=== PATIENT | male | born 1970 | race Caucasian/White ===

== ENCOUNTER 2017-08-15 10:15 | Outpatient (CLI) | payer OTHER ==
[~2017-08-15] VITALS: Ht 172.7 cm; Wt 137.9 kg
[2017-08-15 10:24] VITALS: BP 148/88
[2017-08-15] MEDS ORDERED: DULO30CA3 PO (10:33)
[2017-08-15] MEDS ORDERED: ACET-789 PO (10:33)
[2017-08-15] MEDS ORDERED: LISI10TA2 PO (10:33)
[2017-08-15] MEDS ORDERED: GABA-488 PO (10:33)
[2017-08-15] MEDS ORDERED: DICL/MIS50 PO (10:33)
[2017-08-15 11:13] LABS: BASOPHILS # (AUTO) 0.1 10^3/uL (0.0-0.1); BASOPHILS % (AUTO) 1 % (0-10); EOSINOPHILS # (AUTO) 0.1 10^3/uL (0.0-0.3); EOSINOPHILS % (AUTO) 2 % (0-10); LYMPHOCYTES # (AUTO) 1.5 X 10^3 (1.0-4.0); LYMPHOCYTES % (AUTO) 25 % (12-44); MEAN CORPUSCULAR HEMOGLOBIN 28 PG (25-34); MEAN CORPUSCULAR HGB CONC 34 G/DL (32-36); MEAN CORPUSCULAR VOLUME 81 FL (80-99); MEAN PLATELET VOLUME 12.3 FL (7.4-10.4); MONOCYTES # (AUTO) 0.3 X 10^3 (0.0-1.0); MONOCYTES % (AUTO) 5 % (0-12); NEUTROPHILS % (AUTO) 67 % (42-75); PLATELET COUNT 192 10^3/uL (130-400); RED BLOOD COUNT 5.24 10^6/uL (4.35-5.85); RED CELL DISTRIBUTION WIDTH 13.3 % (10.0-14.5)
== END 2017-08-15 10:45 | disposition home or self-care (01) ==
LOC: PREOP 10:15
PROVIDERS: ATTEND Orthopaedic Surgery Orthopaedic Surgery of the Spine
DX: Z01.812 Encounter for preprocedural laboratory examination (principal); M48.06 Spinal stenosis, lumbar region
CPT/HCPCS: 36415; 85025; 87081

== ENCOUNTER 2017-08-29 06:13 | Inpatient (IN) | payer OTHER ==
[~2017-08-29] VITALS: Ht 172.7 cm; Wt 137.9 kg
[~2017-08-29 06:13] MED LIST: ACET-789 PO; DICL/MIS50 PO; DULO30CA3 PO; GABA-488 PO; LISI10TA2 PO
[2017-08-29] MEDS ORDERED: NS (IVPB) 50 ML ONE (06:21)
[2017-08-29] MEDS ORDERED: ceFAZolin 1,000 MG (ANCEF) VIAL ONE (06:21)
[2017-08-29] MEDS ORDERED: ceFAZolin 2 GM/50 ML NS 50 ML ONE (06:22)
[2017-08-29] MEDS ORDERED: proPOfol 200 MG/20 ML (DIPRIVAN) VIAL IV ONE (06:26)
[2017-08-29] MEDS ORDERED: LIDOCAINE PF 2% 5 ML (XYLOCAINE) VIAL ONE (06:26)
[2017-08-29] MEDS ORDERED: fentaNYL INJECTION 250 MCG/5 ML AMP ONE (06:26)
[2017-08-29] MEDS ORDERED: SEVOFLURANE (ULTANE) 15 ML INHAL SOLN ONE ×6 (06:26→08:35)
[2017-08-29] MEDS: LACTATED RINGERS 1,000 ML IV PRN ×3 (06:30→09:45)
[2017-08-29] MEDS ORDERED: MIDAZOLAM 2 MG/2 ML (VERSED) VIAL IV ONE (06:45)
[2017-08-29] MEDS ORDERED: GENTAMICIN 40 MG/ML 2 ML INJ SDV ONE (06:48)
[2017-08-29] MEDS ORDERED: VANCOMYCIN 1000 MG/VIAL ONE (06:48)
[2017-08-29 06:50] VITALS: BP 141/53
[2017-08-29] MEDS ORDERED: ONDANSETRON 4 MG/2 ML (SDV) Z0FRAN IV PRN (07:00)
[2017-08-29] MEDS ORDERED: MILK OF MAGNESIA 400 MG/5 ML 30 ML UDC PO PRN (07:00)
[2017-08-29] MEDS ORDERED: BISACODYL 5 MG (DULCOLAX) TABLET PO PRN (07:00)
[2017-08-29] MEDS ORDERED: ACETAMINOPHEN 325 MG TABLET/CAPLET (TYLENOL) PO PRN (07:00)
[2017-08-29] MEDS ORDERED: PROMETHAZINE 25 MG (PHENERGAN) TAB PO PRN (07:00)
[2017-08-29] MEDS ORDERED: BACLOFEN 10 MG (LIORESAL) TAB PO PRN (07:00)
[2017-08-29] MEDS ORDERED: morphine INJ 10 MG/ML 1ML (SYR OR VIAL) IVP PRN (07:00)
[2017-08-29] MEDS ORDERED: diphenhydrAMINE 25 MG TAB (BENADRYL) PO PRN (07:00)
--- NOTE | 2017-08-29 07:36 | Progress Note-Pre Operative ---
Pre-Operative Progress Note H&P Reviewed The H&P was reviewed, patient examined and no changes noted. Time Seen by Provider: 07:35 Date H&P Reviewed: Aug 29, 2017 Time H&P Reviewed: 07:35 Pre-Operative Diagnosis: Lumbar Stenosis, Neural Foraminal and lumbar radiculopathy ANGIE FARIAS MD Aug 29, 2017 7:35 am
[2017-08-29] MEDS ORDERED: ceFAZolin 3 GM/NS 50 ML IVPB IV ONE ×2 (07:45)
[2017-08-29] MEDS ORDERED: DEXAMETHASONE 10 MG/ML (DECADRON) 1 ML VIAL ONE (08:35)
[2017-08-29] MEDS ORDERED: LACTATED RINGERS 1,000 ML IV ONE ×2 (08:35→08:43)
[2017-08-29] MEDS ORDERED: DEXMEDETOMIDINE 200 MCG/2 ML (PRECEDEX) VIAL IV ONE (08:43)
[2017-08-29] MEDS ORDERED: ROCURONIUM 50 MG/5 ML (ZEMURON) VIAL IV ONE (09:26)
[2017-08-29] MEDS ORDERED: SUCCINYLCHOLINE INJ 100 MG/5 ML SYR ONE (09:27)
[2017-08-29] MEDS ORDERED: NEOSTIGMINE (BLOXIVERZ ) 1 MG/1ML 10 ML VIAL ONE (09:35)
[2017-08-29] MEDS ORDERED: GLYCOPYRROLATE 0.2 MG/ML (ROBINUL) 2 ML VIAL ONE (09:35)
--- NOTE | 2017-08-29 09:35 | Progress Note-Post Operative ---
Post-Operative Progess Note Surgeon (s)/Jail Keeper (s) Surgeon ANGIE FARIAS MD Jail Keeper: DAVID Sainz Pre-Operative Diagnosis Lumbar Stenosis, Neural Foraminal and lumbar radiculopathy Post-Operative Diagnosis Same Procedure & Operative Findings Date of Procedure 08/29/17 Procedure Performed/Findings L4-5 TLIF/PSF Anesthesia Type GETA Estimated Blood Loss Estimated blood loss (mL): 250 Specimens/Packing Specimens Removed none ANGIE FARIAS MD Aug 29, 2017 9:35 am
[2017-08-29] MEDS ORDERED: NS (IVPB) 100 ML ONE (09:40)
[2017-08-29] MEDS ORDERED: HYDROmorphone (DILAUDID) 2 MG/ML VIAL ONE (09:56)
[2017-08-29] MEDS: HYDROmorphone (DILAUDID) 2 MG/ML VIAL IVP PRN ×2 (10:16→10:29)
[2017-08-29 11:00] VITALS: BP 123/74
[2017-08-29] MEDS ORDERED: ceFAZolin INJECTION 2,000 MG in NS (IVPB) 50 ML IV SCH (11:00)
--- NOTE | 2017-08-29 11:05 | Diagnostic Imaging Report ---
Intraoperative radiographs of the lumbar spine. INDICATION: Back pain. ? Lumbar spine fusion performed by Dr. Schuster. 50 seconds of fluoroscopy time is utilized. IMPRESSION: Anterior and posterior fusion hardware at L4-L5 level is seen in good alignment. Dictated by: Dictated on workstation # [id number]
[2017-08-29] MEDS: NS IV 1000 ML 1,000 ML IV SCH ×2 (11:30→17:16)
[2017-08-29] MEDS: FAMOTIDINE 20 MG (PEPCID) TABLET PO SCH ×2 (11:30→20:31)
[2017-08-29] MEDS: DOCUSATE SODIUM 100 MG (COLACE) CAP PO SCH ×2 (11:41→20:31)
[2017-08-29] MEDS: MULTIVIT W/MINERALS TAB (THERAGRAN M) PO SCH (11:41)
[2017-08-29] MEDS: ceFAZolin 2 GM/50 ML NS 50 ML IV SCH ×2 (11:53→19:46)
[2017-08-29 16:00] VITALS: BP 122/58
[2017-08-29] MEDS: HYDROcodone/APAP 5 MG/325 MG (LORTAB) TAB PO PRN ×2 (16:47→20:31)
[2017-08-29] MEDS ORDERED: INFLUENZA TRIvalent 2017-2018 0.5 ML/45 MCG SYR IM ONE (18:30)
[2017-08-29 19:46] VITALS: BP 125/59
[2017-08-29] MEDS: DULoxetine 30 MG (CYMBALTA) CAP PO SCH (20:31)
[2017-08-29] MEDS: GABAPENTIN 300 MG (NEURONTIN) CAP PO SCH (20:31)
[2017-08-30 00:10] VITALS: BP 120/57
[2017-08-30] MEDS: ceFAZolin 2 GM/50 ML NS 50 ML IV SCH (03:22)
[2017-08-30] MEDS: HYDROcodone/APAP 5 MG/325 MG (LORTAB) TAB PO PRN ×4 (03:48→20:05)
[2017-08-30 04:41] VITALS: BP 127/62
[2017-08-30 05:32] LABS: MEAN PLATELET VOLUME 12.7 FL (7.4-10.4); RED BLOOD COUNT 4.34 10^6/uL (4.35-5.85)
[2017-08-30] MEDS: NS IV 1000 ML 1,000 ML IV SCH ×3 (05:34→23:23)
[2017-08-30 05:52] LABS: ALANINE AMINOTRANSFERASE 10 U/L (0-55); ALBUMIN 3.5 GM/DL (3.2-4.5); ANION GAP 9 MMOL/L (5-14); ASPARTATE AMINO TRANSFERASE 21 U/L (5-34); BILIRUBIN,TOTAL 0.4 MG/DL (0.1-1.0); BLOOD UREA NITROGEN 16 MG/DL (7-18); BUN/CREATININE RATIO 21; CALCIUM 8.2 MG/DL (8.5-10.1); CARBON DIOXIDE 23 MMOL/L (21-32); CHLORIDE 105 MMOL/L (98-107); CREATININE SERUM 0.75 MG/DL (0.60-1.30); GFR ESTIMATED > 60; GLUCOSE 101 MG/DL (70-105); SODIUM 137 MMOL/L (135-145); TOTAL PROTEIN 6.1 GM/DL (6.4-8.2)
[2017-08-30] MEDS: MULTIVIT W/MINERALS TAB (THERAGRAN M) PO SCH (06:02)
--- NOTE | 2017-08-30 07:46 | OPERATIVE REPORT ---
DATE OF SERVICE: 08/29/2017 PREOPERATIVE DIAGNOSIS: Lumbar stenosis neural canal neural foramina due to disk and osseous structures, lumbar radiculopathy, morbid obesity, postlaminectomy syndrome. POSTOPERATIVE DIAGNOSIS: Lumbar stenosis neural canal neural foramina due to disk and osseous structures, lumbar radiculopathy, morbid obesity, postlaminectomy syndrome. PROCEDURE PERFORMED: 1. L4-5 transforaminal lumbar body fusion via right-sided TLIF approach. 2. L4-5 interbody cage instrumentation. 3. A 0.045 posterior nonsegmental pedical screw instrumentation. 4. Autograft for spinal surgery local 5. Allograft morcellized. DATE AND TIME OF SURGERY: Please see anesthesia record. IMPLANTS USED: K2M [place] TLIF cage, K2M [place] pedical screws and [place] bone graft. SURGEON: Dr. Angie Schuster. FOREIGN LANGUAGES PROFESSOR: MAGDA Sainz ROLE OF AUDIO VISUAL ENGINEER: Aid in retraction for the procedure, aiding in implantation, instrumentation and wound closure. ANESTHESIA: General endotracheal. ESTIMATED BLOOD LOSS: 250 mL. IV FLUIDS: Please see anesthesia records. ANTIBIOTICS: Ancef. COMPLICATIONS: None. INDICATIONS FOR PROCEDURE: The patient is a 46-year-old male with severe back and leg pain, stenosis, failure of conservative therapies and desires operative treatment. DESCRIPTION OF PROCEDURE: The patient was taken to the preoperative holding area and brought back to the operating suite. After induction of general anesthesia and preoperative antibiotics, he was placed on spinal monitor. Sterile prep and drape posterior thorax was made. Our attention was directed midline. Incision was made down through the previous incision to the level of the lamina. C-arm brought in for confirmation of appropriate L4-5 level was confirmed. Full exposure was carried out and then the right sided TLIF approach was performed. Lateral recess and foramen were fully and adequately decompressed. Disk was prepped, trial spacer was utilized and a 12 tall and 12 wide 32 long 70 degree [place] TLIF spacer was impacted into position with great fit achieved. Autograft and allograft bone was packed in around the cage as well and then 0.045 noncemented pedicle screw instrumentation was placed, checked on imaging, checked with neural monitoring, checked with neural monitoring rods, applied final tightness placed. High speed bur was used to corticate the posterior elements on the left side of the spine. Autograft and allograft bone was packed posteriorly for the fusion portion of the procedure. Deep dermis placed. Wound copiously irrigated. Wound was closed in layers. The patient was transferred to recovery room in stable condition having tolerated the procedure well. Job ID: [id number] DocumentID: [id number] Dictated Date: 08/29/2017 09:38:22 Cone Marker Date: 08/29/2017 13:30:53 Dictated By: ANGIE SCHUSTER MD MTDD
[2017-08-30 08:00] VITALS: BP 135/62
[2017-08-30] MEDS: DULoxetine 30 MG (CYMBALTA) CAP PO SCH ×2 (08:48→20:02)
[2017-08-30] MEDS: DOCUSATE SODIUM 100 MG (COLACE) CAP PO SCH ×2 (08:48→20:02)
[2017-08-30] MEDS: FAMOTIDINE 20 MG (PEPCID) TABLET PO SCH (08:49)
[2017-08-30] MEDS: lisINopril 10 MG (PRINIVIL) TAB PO SCH (08:49)
[2017-08-30] MEDS: GABAPENTIN 300 MG (NEURONTIN) CAP PO SCH ×3 (08:49→20:02)
--- NOTE | 2017-08-30 09:15 | Diagnostic Imaging Report ---
EXAMINATION: Two views of the lumbar spine. INDICATION: Baseline post lumbar spine fusion. FINDINGS: Post anterior and posterior fusion hardware placement at the L4-5 level is seen. There is normal alignment. A disc cage between L4 and L5 is seen. There is moderate disc height loss and an anterior osteophyte seen at the L2-3 level. No posterior osteophyte is seen. Drain projecting over the abdomen is noted. IMPRESSION: Post L4-5 anterior and posterior fusion in good alignment. Dictated by: Dictated on workstation # [id number]
--- NOTE | 2017-08-30 10:01 | Consultation-Hospitalist ---
HPI History of Present Illness: HPI/Chief Complaint CC: Medical management following uncomplicated L4-5 transforaminal lumbar body fusion via right-sided TLIF approach, L4-5 interbody cage instrumentation, A 0.045 posterior nonsegmental pedical screw instrumentation HPI: This is a 46-year-old white male patient of Dr. Mackey who underwent an uncomplicated complex lumbar spine surgery due to severe back pain and failure of conservative approach. At this current time he is walked with physical therapy his pain is controlled and overall feeling well. He denies any chest pain or shortness of breath and urination is normal. Source: patient Exam Limitations: no limitations Date Seen 08/30/17 Attending Physician Darien Schuster MD PCP Vida Mackey MD Referring Physician Date of Admission Aug 29, 2017 at 06:13 Home Medications & Allergies Home Medications Reviewed patient Home Medication Reconciliation Form Allergies Allergies Coded Allergies No Known Drug Allergies (Uhfwlqdzlp28/16/16) Past Ozmtfep-Dhnohk-Lqorki Hx Patient Social History Marrital Status: Employed/Student: employed ([employer] ) Alcohol Use: Denies Use Recreational Drug Use: No Smoking Status: Never a Smoker Physical Abuse Screen: No Sexual Abuse: No Recent Foreign Travel: No Contact w/other who traveled: No Recent Infectious Disease Expo: No Seasonal Allergies Seasonal Allergies: No Surgeries Yes (R foot fx, ulvevectomy, back sx) Respiratory Yes Sleep Apnea Currently Using CPAP: Yes Cardiovascular Yes High Cholesterol, Hypertension Neurological No Genitourinary No Gastrointestinal No Musculoskeletal Yes (stenosis, right foot fx) Chronic Back Pain Endocrine History of Endocrine Disorders: No HEENT History of HEENT Disorders: Yes (glasses, ) Cancer No Psychosocial History of Psychiatric Problem: Yes Behavioral Health Disorders: Depression Integumentary History of Skin or Integumenta: Yes Skin/Integumentary Disorders: Eczema Blood Transfusions History of Blood Disorders: No Family Medical History Family Hx: Arthritis 19 MOTHER G8 SISTER FH: breast cancer 19 MOTHER Hypertension 19 MOTHER G8 SISTER Myocardial infarction Seizure disorder 19 FATHER Review of Systems Constitutional: see HPI EENTM: no symptoms reported Respiratory: no symptoms reported Cardiovascular: no symptoms reported Gastrointestinal: no symptoms reported Genitourinary: no symptoms reported Musculoskeletal: back pain Skin: no symptoms reported Psychiatric/Neurological: No Symptoms Reported All Other Systems Reviewed Negative Unless Noted: Yes Physical Exam Physical Exam Vital Signs Vital Sign - Last 12Hours 10/2/17 06:50 Temp 98.7 Pulse 61 Resp 16 B/P (MAP) 141/53 Pulse Ox 97 O2 Delivery Room Air Capillary Refill : General Appearance: No Apparent Distress, WD/WN, Chronically ill, Obese Eyes: Bilateral Eye Normal Inspection, Bilateral Eye PERRL HEENT: PERRL/EOMI, Normal ENT Inspection, Pharynx Normal Neck: Full Range of Motion, Normal Inspection, Non Tender, Supple, Carotid Bruit Respiratory: Chest Non Tender, Lungs Clear, Normal Breath Sounds, No Accessory Muscle Use, No Respiratory Distress Cardiovascular: Regular Rate, Rhythm, No Edema, No Gallop, No JVD, No Murmur, Normal Peripheral Pulses Gastrointestinal: Normal Bowel Sounds, No Organomegaly, No Pulsatile Mass, Non Tender, Soft Back: Decreased Range of Motion, Vertebral Tenderness Extremity: Normal Capillary Refill, Normal Inspection, Normal Range of Motion, Non Tender, No Calf Tenderness, No Pedal Edema Neurologic/Psychiatric: Alert, Oriented x3, No Motor/Sensory Deficits, Normal Mood/Affect Skin: Normal Color, Warm/Dry Lymphatic: No Adenopathy Results Results/Procedures Lab Laboratory Tests 08/30/17 05:05 Assessment/Plan Admission Diagnosis Assessment: s/p uncomplicated L4-5 transforaminal lumbar body fusion via right-sided TLIF approach, L4-5 interbody cage instrumentation, and A 0.045 posterior nonsegmental pedical screw instrumentation POD # 1 BECCA Obesity HTN HLP Assessment and Plan Plan: Pain management BM regimen PT/OT rehab? Copy Copies To 1: VIDA MACKEY MD Clinical Quality Measures DVT/VTE Risk/Contraindication: Risk Factor Score Per Nursin RFS Level Per Nursing on Admit: 2=Moderate KATHYA DE LEÓN DO Aug 30, 2017 10:01
--- NOTE | 2017-08-30 10:02 | Physical Therapy Evaluation ---
PT Evaluation-General Medical Diagnosis Admission Date Aug 29, 2017 at 06:13 Medical Diagnosis: lumbar stenosis Onset Date: Aug 29, 2017 Therapy Diagnosis Therapy Diagnosis: debility Height/Weight Height (Feet): 5 Height (Inches): 8.00 Weight (Pounds): 304 Weight (Ounces): 0.0 Precautions Precautions/Isolations: Fall Prevention, Standard Precautions Weight Bear Status Right Lower Extremity: Right Weight Bearing/Tolerated Left Lower Extremity: Left Weight Bearing/Tolerated Referral Physician: Landen Reason for Referral: Evaluation/Treatment Medical History Additional Medical History morbid obesity lumbar radiculopathy Current History s/p lumbar TLIF L4-5 Reviewed History: Yes Social History Home: Single Level Current Living Status: Spouse Prior/Core FIM Prior Level of Function Functional [place] Measure 0=Not Assessed/NA 4=Minimal Assistance 1=Total Assistance 5=Supervision or Setup 2=Maximal Assistance 6=Modified [place] 3=Moderate Assistance 7=Complete [place] Bed Mobility: 7 Transfers (B,C,W/C) (FIM): 7 Gait: 7 Locomotion: 7 PT Evaluation-Current Subjective Patient agrees to PT. Pain Numeric Pain Scale: 8 Location: Lower Location Body Site: Back Pain Description: Acute Objective Patient Orientation: Normal For Age Problem Solving: Good Attachments: IV ROM/Strength ROM Lower Extremities bilateral LE WNL Strenght Lower Extremities right knee flexion/extension 4/5; hip flexion 4/5 left knee flexion/extension 4/5; hip flexion 4/5 Integumentary/Posture Integumentary refer to nursing notes Bowel Incontinence: No Bladder Incontinence: No Posture slight trunk flexed posture Neuromuscular (Tone, Coordination, Reflexes) grossly intact Sensory Vision: Wears Glasses Hearing: Functional Sensation Right Lower Extremit: Intact Sensation Left Lower Extremity: Intact Transfers Functional [place] Measure 0=Not Assessed/NA 4=Minimal Assistance 1=Total Assistance 5=Supervision or Setup 2=Maximal Assistance 6=Modified [place] 3=Moderate Assistance 7=Complete [place] Transfers (B, C, W/C) (FIM): 5 Scootin Rollin Supine to/from Sit: 5 Sit to/from Stand: 5 Gait Mode of Locomotion: Walk Anticipated Mode of Locomotion: Walk Gait (FIM): 5 Distance (FIM): 3=150 ft Distance: 300' Gait Level of Assist: 5 Gait Assistive Device: FWW Comments/Gait Description very slow and steady/ trunk flexed posture Balance Sitting Static: Normal Sitting Dynamic: Normal Standing Static: Normal Standing Dynamic: Normal Treatment Patient donns back brace independently Assessment/Needs 46 y.o. male, will benefit from short term skilled PT to address functional mobility to improve current LOF. Rehab Potential: Good PT Rose Grower Goals Rose Grower Goals PT Skilled Nursing Goals Time Frame: Sep 03, 2017 Transfers (B,C,W/C) (FIM): 6 Gait (FIM): 6 Gait distance (FIM): 3=150 ft Gait Level of Assist: 6 Gait Assistive Device: None, FWW PT Plan Problem List Problem List: Bed Mobility Treatment/Plan Treatment Plan: Continue Plan of Care Treatment Plan: Bed Mobility, Education, Functional Activity Esequiel, Functional Strength, Gait, Safety, Therapeutic Exercise, Transfers Treatment Duration: Sep 03, 2017 Frequency: 11 times per week Estimated Hrs Per Day: .25 hour per day Patient and/or Family Agrees t: Yes Safety Risks/Education Patient Education: Safety Issues Teaching Recipient: Patient Teaching Methods: Discussion Response to Teaching: Verbalize Understanding Discharge Recommendations Therapy D/C Recommendations: Home w/ Family Support Time/GCodes Time In: 855 Time Out: 918 Total Billed Treatment Time: 23 Total Billed Treatment 1 visit EVModC 23 min G Codes Necessary: ALFREDITO Gale PT Aug 30, 2017 10:02
[2017-08-30 12:00] VITALS: BP 114/56
--- NOTE | 2017-08-30 14:40 | Physical Therapy Progress Note ---
Therapy Progress Note Patient is up with family () in hallway ambulating without difficulty. Patient refused exercise/ambulation with PT. 1 ref ALFREDITO ALEX PT Aug 30, 2017 14:40
[2017-08-30 15:40] VITALS: BP 111/67
--- NOTE | 2017-08-30 15:46 | Anesthesia-General Post-Op ---
General Patient Condition Mental Status/LOC: Same as Preop Cardiovascular: Satisfactory Nausea/Vomiting: Absent Respiratory: Satisfactory Pain: Controlled Complications: Absent Post Op Complications Complications None Follow Up Care/Instructions Patient Instructions None needed. Anesthesia/Patient Condition Patient Condition Patient is doing well, no complaints, stable vital signs, no apparent adverse anesthesia problems. No complications reported per nursing. SYLVAIN MARSHALL CRNA Aug 30, 2017 15:46
--- NOTE | 2017-08-30 17:49 | Progress Note (SOAP) ---
Subjective Date Seen by Provider: Aug 30, 2017 Time Seen by Provider: 15:20 Subjective/Events-last exam Right leg pain better, back sore Objective Exam Vital Signs Date Time Temp Pulse Resp B/P (MAP) Pulse Ox O2 Delivery O2 Flow Rate FiO2 08/30/17 15:40 97.9 68 20 111/67 97 Room Air 08/30/17 12:00 97.3 66 20 114/56 96 Room Air 08/30/17 08:00 98.3 66 20 135/62 96 Room Air 08/30/17 04:41 98.0 63 18 127/62 97 Room Air 08/30/17 00:10 97.9 71 20 120/57 98 Room Air 08/29/17 19:46 98.4 73 19 125/59 96 Room Air I & O 08/31/17 07:00 Intake Total 640 ml Output Total 445 ml Balance 195 ml Capillary Refill : General Appearance: No Apparent Distress Respiratory: No Accessory Muscle Use, No Respiratory Distress Cardiovascular: Regular Rate, Rhythm Gastrointestinal: non tender, soft Extremity: Normal Capillary Refill, Normal Inspection, Non Tender Neurologic/Psychiatric: Alert, Oriented x3, No Motor/Sensory Deficits Skin: Other (Dressing dry, SHARONA in place) Results Lab Laboratory Tests 08/30/17 05:05: White Blood Count 11.0, Red Blood Count 4.34L, Hemoglobin 12.1L, Hematocrit 36L , Mean Corpuscular Volume 83, Mean Corpuscular Hemoglobin 28, Mean Corpuscular Hemoglobin Concent 34, Red Cell Distribution Width 13.0, Platelet Count 194, Mean Platelet Volume 12.7H, Sodium Level 137, Potassium Level 4.0, Chloride Level 105, Carbon Dioxide Level 23, Anion Gap 9, Blood Urea Nitrogen 16, Creatinine 0.75, Estimat Glomerular Filtration Rate > 60, BUN/Creatinine Ratio 21, Glucose Level 101, Calcium Level 8.2L, Total Bilirubin 0.4, Aspartate Amino Transf (AST/SGOT) 21, Alanine Aminotransferase (ALT/SGPT) 10, Alkaline Phosphatase 25L, Total Protein 6.1L, Albumin 3.5 Assessment/Plan Assessment/Plan Assess & Plan/Chief Complaint Lumbar Stenosis Lumbar Radiculopathy Plan: Continue post op care, up with PT, pain control Clinical Quality Measures DVT/VTE Risk/Contraindication: Risk Factor Score Per Nursin RFS Level Per Nursing on Admit: 2=Moderate IPSANGIE ESTEVEZ J MD Aug 30, 2017 5:48 pm
[2017-08-30 19:51] VITALS: BP 109/71
[2017-08-30] MEDS ORDERED: INFLUENZA TRIvalent 2017-2018 0.5 ML/45 MCG SYR IM ONE (21:48)
[2017-08-31 00:07] VITALS: BP 119/57
[2017-08-31] MEDS: HYDROcodone/APAP 5 MG/325 MG (LORTAB) TAB PO PRN ×5 (02:26→22:40)
[2017-08-31 04:19] VITALS: BP 129/58
[2017-08-31] MEDS: MULTIVIT W/MINERALS TAB (THERAGRAN M) PO SCH (06:13)
--- NOTE | 2017-08-31 06:39 | Progress Note (SOAP) ---
Subjective Time Seen by Provider: 06:38 Subjective/Events-last exam Pain ok, getting up with PT Objective Exam Vital Signs Date Time Temp Pulse Resp B/P (MAP) Pulse Ox O2 Delivery O2 Flow Rate FiO2 08/31/17 04:19 99.2 65 18 129/58 95 Room Air 08/31/17 00:07 99.7 60 18 119/57 96 Room Air 08/30/17 19:51 98.1 64 22 109/71 97 Room Air 08/30/17 15:40 97.9 68 20 111/67 97 Room Air 08/30/17 12:00 97.3 66 20 114/56 96 Room Air 08/30/17 08:00 98.3 66 20 135/62 96 Room Air Capillary Refill : General Appearance: No Apparent Distress Respiratory: No Accessory Muscle Use, No Respiratory Distress Cardiovascular: Regular Rate, Rhythm Extremity: Normal Capillary Refill, Non Tender, No Calf Tenderness Neurologic/Psychiatric: Alert, Oriented x3, No Motor/Sensory Deficits Assessment/Plan Assessment/Plan Assess & Plan/Chief Complaint Lumbar Stenosis Lumbar Radiculopathy Plan: Continue post op care, up with PT, pain control Arrange placement, Inpt Rehab, vs SNF Clinical Quality Measures DVT/VTE Risk/Contraindication: Risk Factor Score Per Nursin RFS Level Per Nursing on Admit: 2=Moderate ANGIE FARIAS MD Aug 31, 2017 6:39 am
[2017-08-31] MEDS ORDERED: BACL10TA PO (06:41)
[2017-08-31] MEDS ORDERED: HYDR-3812 PO (06:41)
[2017-08-31] MEDS: DOCUSATE SODIUM 100 MG (COLACE) CAP PO SCH ×2 (08:06→20:42)
[2017-08-31] MEDS: lisINopril 10 MG (PRINIVIL) TAB PO SCH (08:06)
[2017-08-31] MEDS: GABAPENTIN 300 MG (NEURONTIN) CAP PO SCH ×3 (08:06→20:42)
[2017-08-31] MEDS: DULoxetine 30 MG (CYMBALTA) CAP PO SCH ×2 (08:06→20:42)
[2017-08-31 08:21] VITALS: BP 135/81
[2017-08-31] MEDS: NS IV 1000 ML 1,000 ML IV SCH ×2 (09:17→19:09)
--- NOTE | 2017-08-31 09:21 | Physical Therapy Daily Note ---
PT Daily Note-Current Subjective Pt sitting up in bed upon arrival. Pt agrees to PT. Pain Numeric Pain Scale: 8 Location Body Site: Back Pain Description: Ache, Burning, Tightness Mental Status Patient Orientation: Person, Place, Time, Situation Transfers Functional [place] Measure 0=Not Assessed/NA 4=Minimal Assistance 1=Total Assistance 5=Supervision or Setup 2=Maximal Assistance 6=Modified [place] 3=Moderate Assistance 7=Complete IndependenceIRFPAI Quality Coding Scale 6 Independent with activity with or without an assistive device 5 Patient requires set up or clean up by helper. Patient completes activity by themselves 4 Supervision or touching assist (CGA). Amasa provide cues , steadying assist 3 The helper provides less than half the effort to complete the activity 2 The helper provides more than half the effort to complete the activity 1 Dependent. The helper does all the effort to complete an activity 7 Patient refused to complete or attempt activity 9 The patient did not perform the activity before the current illness or injury 88 Not attempted due to Medical conditions or safety concerns Scootin Rollin Supine to/from Sit: 5 Sit to/from Stand: 5 Bed to/from Chair: 5 Weight Bearing Right Lower Extremity: Right Weight Bearing/Tolerated Left Lower Extremity: Left Weight Bearing/Tolerated Gait Training Distance (FIM): 1=up to 49 ft Distance: 20' Gait Level of Assist: 5 Gait Persons Needed: 1 Gait Assistive Device: FWW Pt walks with tentative gait due to pain/discomfort. Exercises Seated Therapy Exercises: Ankle pumps, Long arc quads, Hip flexion, Kicking activity Seated Reps: 20 Treatments Pt transfers from Supine to EOB to standing using FWW at A. Pt uses restroom before returning to recliner to rest. Pt completes Seated Ex in recliner. Pt has needs met at end of tx. Assessment Current Status: Good Progress Pt has pain that limits activity but pt is able to complete transfers well when he is willing to push through pain. PT Orthopedic Coder Goals Detention Goals PT Detention Goals Time Frame: Sep 03, 2017 Transfers (B,C,W/C) (FIM): 6 Gait (FIM): 6 Gait distance (FIM): 3=150 ft Gait Level of Assist: 6 Gait Assistive Device: None, FWW PT Plan Problem List Problem List: Activity Tolerance, Functional Strength, Safety, Balance, Gait Treatment/Plan Treatment Plan: Continue Plan of Care Treatment Plan: Bed Mobility, Education, Functional Activity Esequiel, Functional Strength, Gait, Safety, Therapeutic Exercise, Transfers Treatment Duration: Sep 03, 2017 Frequency: 11 times per week Estimated Hrs Per Day: .25 hour per day Patient and/or Family Agrees t: Yes Safety Risks/Education Patient Education: Gait Training, Transfer Techniques, Correct Positioning, Safety Issues Teaching Recipient: Patient Teaching Methods: Discussion Response to Teaching: Verbalize Understanding Time/GCodes Time In: 825 Time Out: 840 Total Billed Treatment Time: 15 Total Billed Treatment visit, FA (15m) ZEYNEP MULLEN PTA Aug 31, 2017 09:21
--- NOTE | 2017-08-31 11:26 | Progress Note-Hospitalist ---
Progress Note HPI/CC on Admission CC: Medical management following uncomplicated L4-5 transforaminal lumbar body fusion via right-sided TLIF approach, L4-5 interbody cage instrumentation, A 0.045 posterior nonsegmental pedical screw instrumentation HPI: This is a 46-year-old white male patient of Dr. Mixon who underwent an uncomplicated complex lumbar spine surgery due to severe back pain and failure of conservative approach. At this current time he is walked with physical therapy his pain is controlled and overall feeling well. He denies any chest pain or shortness of breath and urination is normal. Progress Notes/Assess & Plan Date Seen 08/31/17 Time Seen by Provider: 10:00 Admission Dx/Process Assessment: s/p uncomplicated L4-5 transforaminal lumbar body fusion via right-sided TLIF approach, L4-5 interbody cage instrumentation, and A 0.045 posterior nonsegmental pedical screw instrumentation POD # 1 BECCA Obesity HTN HLP Diagonsis/Assessment & Plan Patient doing very well but very apprehensive about going home because he just can't get around and in my opinion that would put him at risk for just laying on the surgical site making it high risk for infection and even slower recovery without complications. Rehabilitation placement is discussed No BM yet but taking meds No urination problems Pain is controlled No fever, vital signs stable, pleasant, improved, sitting in chair Regular rate and rhythm, clear to auscultation bilaterally No edema Assessment: s/p uncomplicated L4-5 transforaminal lumbar body fusion via right-sided TLIF approach, L4-5 interbody cage instrumentation, and A 0.045 posterior nonsegmental pedical screw instrumentation POD # 2 Slow recovery may need rehab placement to prevent pressure ulcer and infection risk at the surgical site BECCA Obesity HTN HLP Plan: Pain management BM regimen PT/OT Rehab? KATHYA DE LEÓN DO Aug 31, 2017 11:26
[2017-08-31 12:34] VITALS: BP 113/75
--- NOTE | 2017-08-31 13:48 | Occupational Therapy Eval ---
OT Evaluation-General/PLF Medical Diagnosis Admission Date Aug 29, 2017 at 06:13 Medical Diagnosis: lumbar stenosis Onset Date: Aug 29, 2017 Therapy Diagnosis Therapy Diagnosis: decreased self care skills Height/Weight Height (Feet): 5 Height (Inches): 8.00 Weight (Pounds): 304 Weight (Ounces): 0.0 Precautions Precautions/Isolations: Standard Precautions Safety Interventions: None Comments back brace Referral Physician: Landen Medical History Pertinent Medical History: HTN Additional Medical History right foot fracture, sleep apnea, high cholesterol, depression, eczema Current History Pt s/p L4-5 TLIF Social History Home: Single Level Current Living Status: Spouse (works at night) Entry Into Home: Stairs Without Railing Steps Into Home: 6 ADL-Prior Level of Function ADL PLOF Comments Pt states he has been independent, but struggles to complete self care. DME/Equipment: Tub/Shower Drive Self: Yes OT Current Status Subjective Pt sitting in chair, agrees to therapy. Pt reports back pain with movement (not rated), but states he doesn't have any pain at rest. Mental Status/Objective Patient Orientation: Person, Place, Situation Attachments: Drains Current Glasses/Contacts: Yes Hearing Aids: No Dentures/Partials: No Hand Dominance: Right Upper Extremity ROM Grossly functional Upper Extremity Coordination Intact Upper Extremity Sensation intact per pt report ADL-Treatment ADL-Current Pt sitting in chair after working with PT. Pt is wearing back brace, states he is able to don without assistance. Pt performed sit to stand with supervision and cues for hand placement. Pt demonstrates ability to perform transfer with supervision with FWW. Pt unable to complete LE ADLs without adaptive equipment secondary to back precautions. Education provided regarding use of adaptive equipment for LE dressing. Pt doffed socks with SBA using catering truck operator. Donned socks with verbal cues using sock aid. Pt states he would like to shower later today, but wants to rest at this time. Pt sitting in chair with needs met and mother present after session. Functional [place] Measure 0=Not Assessed/NA 4=Minimal Assistance 1=Total Assistance 5=Supervision or Setup 2=Maximal Assistance 6=Modified [place] 3=Moderate Assistance 7=Complete IndependenceIRFPAI Quality Coding Scale 6 Independent with activity with or without an assistive device 5 Patient requires set up or clean up by helper. Patient completes activity by themselves 4 Supervision or touching assist (CGA). [place] provide cues , steadying assist 3 The helper provides less than half the effort to complete the activity 2 The helper provides more than half the effort to complete the activity 1 Dependent. The helper does all the effort to complete an activity 7 Patient refused to complete or attempt activity 9 The patient did not perform the activity before the current illness or injury 88 Not attempted due to Medical conditions or safety concerns Eating (FIM): 7 (by report) Lower Body Dressing (FIM): 5 (socks only with adaptive equipment) Education OT Patient Education: Modified ADL techniques, Rehab process Teaching Recipient: Patient Teaching Methods: Discussion Response to Teaching: Verbalize Understanding OT Short Term Goals Short Term Goals 1=Demonstrate adherence to instructed precautions during ADL tasks. 2=Patient will verbalize/demonstrate understanding of assistive devices/ modifications for ADL. 3=Patient will improve strength/tolerance for activity to enable patient to perform ADL's. OT Lawn Technician Goals Lawn Technician Goals Time Frame: Sep 07, 2017 Bathing(FIM): 5 Upper Body Dressing(FIM): 6 Lower Body Dressing(FIM): 6 Toileting(FIM): 6 Toilet/Commode Transfer(FIM): 6 Additional Goals: 1-Demonstrate ADL Tasks, 2-Verbalize Understanding, 3- ImproveStrength/Esequiel 1=Demonstrate adherence to instructed precautions during ADL tasks. 2=Patient will verbalize/demonstrate understanding of assistive devices/ modifications for ADL. 3=Patient will improve strength/tolerance for activity to enable patient to perform ADL's. OT Education/Plan Problem List/Assessment Assessment: Dependent Transfers, Impaired Self-Care Skills Pt s/p L4-5 TLIF with decreased mobility and ADL functioning. Pt to benefit from skilled OT intervention for ADL training, transfers, strengthening, adaptive equipment training, and home safety education to improve level of independence and allow safe discharge. Discharge Recommendations Plan/Recommendations: Continue POC Treatment Plan/Plan of Care Treatment,Training & Education: Yes Patient would benefit from OT for education, treatment and training to promote independence in ADL's, mobility, safety and/or upper extremity function for ADL' s. Plan of Care: ADL Retraining, Functional Mobility, UE Funct Exercise/Act Treatment Duration: Sep 07, 2017 Frequency: 5 times per week Estimated Hrs Per Day: .25 hour per day Agreement: Yes Rehab Potential: Good Time/GCodes Start Time: 13:20 Stop Time: 13:39 Total Time Billed (hr/min): 19 Billed Treatment Time 1 visit, EVL(19minutes) COURTNEY ARIZA OT Aug 31, 2017 13:48
--- NOTE | 2017-08-31 14:07 | Physical Therapy Daily Note ---
PT Daily Note-Current Subjective Pt sitting in recliner upon arrival. Pt agrees to walking for PT. Pain Numeric Pain Scale: 8 Location: Incisional Location Body Site: Back Pain Description: Ache Mental Status Patient Orientation: Person, Place, Time, Situation Transfers Functional [place] Measure 0=Not Assessed/NA 4=Minimal Assistance 1=Total Assistance 5=Supervision or Setup 2=Maximal Assistance 6=Modified [place] 3=Moderate Assistance 7=Complete IndependenceIRFPAI Quality Coding Scale 6 Independent with activity with or without an assistive device 5 Patient requires set up or clean up by helper. Patient completes activity by themselves 4 Supervision or touching assist (CGA). [place] provide cues , steadying assist 3 The helper provides less than half the effort to complete the activity 2 The helper provides more than half the effort to complete the activity 1 Dependent. The helper does all the effort to complete an activity 7 Patient refused to complete or attempt activity 9 The patient did not perform the activity before the current illness or injury 88 Not attempted due to Medical conditions or safety concerns Scootin Sit to/from Stand: 5 Weight Bearing Right Lower Extremity: Right Weight Bearing/Tolerated Left Lower Extremity: Left Weight Bearing/Tolerated Gait Training Distance (FIM): 3=150 ft Distance: 175' Gait Level of Assist: 5 Gait Persons Needed: 1 Gait Assistive Device: FWW Pt has slow but steady trevor, no LOB. Treatments Pt transferred from recliner to standing using FWW at [facility]. Pt ambulated in hallway using FWW at [facility]. Pt returned to room at end of walk to rest in recliner with all needs met. Assessment Current Status: Good Progress Pt was able to transfer and ambulate better and farther than this morning. Pt fatigues easy though. PT Long-Term Goals Long-Term Goals PT Long-Term Goals Time Frame: Sep 03, 2017 Transfers (B,C,W/C) (FIM): 6 Gait (FIM): 6 Gait distance (FIM): 3=150 ft Gait Level of Assist: 6 Gait Assistive Device: None, FWW PT Plan Problem List Problem List: Activity Tolerance, Functional Strength, Safety, Balance, Gait Treatment/Plan Treatment Plan: Continue Plan of Care Treatment Plan: Bed Mobility, Education, Functional Activity Esequiel, Functional Strength, Gait, Safety, Therapeutic Exercise, Transfers Treatment Duration: Sep 03, 2017 Frequency: 11 times per week Estimated Hrs Per Day: .25 hour per day Patient and/or Family Agrees t: Yes Safety Risks/Education Patient Education: Gait Training, Transfer Techniques, Correct Positioning, Safety Issues Teaching Recipient: Patient Teaching Methods: Discussion Response to Teaching: Verbalize Understanding Time/GCodes Time In: 1300 Time Out: 1315 Total Billed Treatment Time: 15 Total Billed Treatment visit, GT (15m) ZEYNEP MULLEN PTA Aug 31, 2017 14:07
[2017-08-31 16:00] VITALS: BP 137/72
[2017-09-01] VITALS: BP 117/75
[2017-09-01] MEDS: MULTIVIT W/MINERALS TAB (THERAGRAN M) PO SCH (06:10)
[2017-09-01] MEDS: DULoxetine 30 MG (CYMBALTA) CAP PO SCH (08:23)
[2017-09-01] MEDS: DOCUSATE SODIUM 100 MG (COLACE) CAP PO SCH (08:23)
[2017-09-01] MEDS: lisINopril 10 MG (PRINIVIL) TAB PO SCH (08:23)
[2017-09-01] MEDS: GABAPENTIN 300 MG (NEURONTIN) CAP PO SCH ×2 (08:23→14:48)
[2017-09-01] MEDS: HYDROcodone/APAP 5 MG/325 MG (LORTAB) TAB PO PRN ×2 (08:23→14:48)
[2017-09-01 08:38] VITALS: BP 129/81
--- NOTE | 2017-09-01 09:40 | Physical Therapy Daily Note ---
PT Daily Note-Current Subjective Patient agrees to PT. Patient donns back brace independently Pain Numeric Pain Scale: 5-Moderate Pain Location: Lower Location Body Site: Back Pain Description: Acute Mental Status Patient Orientation: Normal For Age Transfers Functional [place] Measure 0=Not Assessed/NA 4=Minimal Assistance 1=Total Assistance 5=Supervision or Setup 2=Maximal Assistance 6=Modified [place] 3=Moderate Assistance 7=Complete IndependenceIRFPAI Quality Coding Scale 6 Independent with activity with or without an assistive device 5 Patient requires set up or clean up by helper. Patient completes activity by themselves 4 Supervision or touching assist (CGA). [place] provide cues , steadying assist 3 The helper provides less than half the effort to complete the activity 2 The helper provides more than half the effort to complete the activity 1 Dependent. The helper does all the effort to complete an activity 7 Patient refused to complete or attempt activity 9 The patient did not perform the activity before the current illness or injury 88 Not attempted due to Medical conditions or safety concerns Transfers (B, C, W/C) (FIM): 5 Scootin Sit to/from Stand: 5 Weight Bearing Right Lower Extremity: Right Weight Bearing/Tolerated Left Lower Extremity: Left Weight Bearing/Tolerated Gait Training Gait (FIM): 6 Distance (FIM): 3=150 ft Distance: 350' Gait Level of Assist: 6 Gait Assistive Device: FWW low, antalgic, trunk flexed posture with VC's to correct with FWW Stair Training Stair Training: Handrails/: 1 handrail, uses walker Stairs (FIM): 5 #of Steps: 8 Stairs: Pattern: Step to Level of Assist: 5 Exercises Seated Therapy Exercises: Ankle pumps, Long arc quads Seated Reps: 25 Assessment Current Status: Excellent Progress Patient is progressing with treatment plan. From a PT standpoint, patient would benefit from home health therapy upon dismissal from hospital. PT Residential Goals Residential Goals PT Farm Equipment Maintenance Supervisor Goals Time Frame: Sep 03, 2017 Transfers (B,C,W/C) (FIM): 6 Gait (FIM): 6 Gait distance (FIM): 3=150 ft Gait Level of Assist: 6 Gait Assistive Device: None, FWW PT Plan Treatment/Plan Treatment Plan: Continue Plan of Care Treatment Plan: Bed Mobility, Education, Functional Activity Esequiel, Functional Strength, Gait, Safety, Therapeutic Exercise, Transfers Treatment Duration: Sep 03, 2017 Frequency: 11 times per week Estimated Hrs Per Day: .25 hour per day Patient and/or Family Agrees t: Yes Safety Risks/Education Patient Education: Steps Teaching Recipient: Patient Teaching Methods: Demonstration Response to Teaching: Return Demonstration Discharge Recommendations Therapy D/C Recommendations: Home w/ Family Support, Physical Therapy Home Care Equpiment Recommendations-D/C: Front Wheeled Walker Time/GCodes Time In: 856 Time Out: 919 Total Billed Treatment Time: 23 Total Billed Treatment 1 visit GT 13 min FA 10 min ALFREDITO ALEX PT Sep 01, 2017 09:40
--- NOTE | 2017-09-01 12:25 | D/C HH Face to Face Order ---
D/C Face to Face Orders Instructions for Patient Patient Instructions/FollowUp: home health to see the patient 3 times a week for baths, wound check, physical therapy to see the patient daily. Physician to follow Patient: [place] Discharge Diet for Home: Regular Diet Patient Data-Allergies,Ht & Wt Patient Allergies: Coded Allergies: No Known Drug Allergies (Unverified , 11/12/16) Height (Feet): 5 Height (Inches): 8.00 Weight (Pounds): 304 Weight (Ounces): 0.0 Home Health Need/Face to Face Date of Face to Face: Sep 01, 2017 Clinical Findings: Muscle weakness, Unsteady gait I have seen Pt [id number]: Yes Discharged To: Home Diagnosis/Conditions: status post back surgery Problems/Diagnosis/Condition: Patient is Homebound due to: Michelle fall risk due to instabilty, Muscle weakness Homebound Status Due to the above stated illness, injury or surgical procedure (medical condition or diagnosis) and associated clinical findings, the patient is homebound because of his/her inability to leave home except with aid of a supportive device and/or person AND leaving the home requires a considerable and taxing effort or is medically contraindicated. Pt req the following assistanc: Walker Home Health Nursing Orders Home Health Services Order: Nursing Services, Physical Therapy-Evaluate & Treat Home Health Infusion Therapy Line Start Date: Aug 30, 2017 Line Start Time: 50 Site Location: Forearm Therapy Orders Therapy Orders: Physical Therapy Therapy Specific Orders: Gait training, Increase strength/endurance Certify Stmt I certify that this patient is under my care and that I, a nurse practitioner or a physician; a commercial lines assistant working with me, had a face to face encounter that - meets the physician face to face encounter requirements with this patient as dated. FRANCES LINDA MD Sep 01, 2017 12:25
--- NOTE | 2017-09-01 12:29 | Discharge Summary-Hospitalist ---
Diagnosis/Chief Complaint Date of Admission Aug 29, 2017 at 06:13 Date of Discharge September 01, 2017 Discharge Date: Sep 01, 2017 Discharge Time: 15:00 Admission Diagnosis Assessment: s/p uncomplicated L4-5 transforaminal lumbar body fusion via right-sided TLIF approach, L4-5 interbody cage instrumentation, and A 0.045 posterior nonsegmental pedical screw instrumentation POD # 1 BECCA Obesity HTN HLP Discharge Diagnosis s/p uncomplicated L4-5 transforaminal lumbar body fusion via right-sided TLIF approach, L4-5 interbody cage instrumentation, and A 0.045 posterior nonsegmental pedical screw instrumentation Slow recovery may need rehab placement to prevent pressure ulcer and infection risk at the surgical site BECCA Obesity HTN Discharge Summary Procedures L4-5 transforaminal lumbar body fusion via right-sided TLIF approach, L4-5 interbody cage instrumentation, and A 0.045 posterior nonsegmental pedical screw instrumentation POD # 2 Consultations [place] Discharge Physical Examination Allergies: Coded Allergies: No Known Drug Allergies (Unverified , 11/12/16) Vitals & I&Os Vital Signs Date Time Temp Pulse Resp B/P (MAP) Pulse Ox O2 Delivery O2 Flow Rate FiO2 09/01/17 08:38 97.5 58 20 129/81 95 Room Air General Appearance: Alert, Oriented X3, Cooperative Respiratory: Clear to Auscultation Cardiovascular: Regular Rate, Normal S1, Normal S2 Abdominal: Normal Bowel Sounds, Soft Neuro: Other (ambulating with a walker somewhat unsteady) Psych/Mental Status: Mental Status NL Hospital Course the patient was admitted and underwent an uncomplicated L4 5 fusion with cage, by Dr. Schuster. the patient was slow to recover and has been ambulating only slowly with his walker. He is concerned as his family is about his fall risk. He continues to have some postop pain that is fairly well controlled at this time. He is ambulated 350 feet with his walker without problems at this time. It is deemed a he is recovered enough to go home with home health care and physical therapy. Discharge Home Medications: Active Scripts Active Hydrocodon -Acetaminophen 5-325 (Hydrocodone/Acetaminophen) 1 Each Tablet 1-2 Tab PO Q4H PRN 30 Days Baclofen 10 Mg Tablet 10 Mg PO Q8HR PRN 30 Days Reported Lisinopril 10 Mg Tablet 10 Mg PO DAILY Gabapentin 300 Mg Capsule 300 Mg PO TID Cymbalta (Duloxetine HCl) 30 Mg Capsule.dr 30 Mg PO BID Condition at discharge stable Instructions to patient/family Please see electronic discharge instructions given to patient. Clinical Quality Measures DVT/VTE Risk/Contraindication: Risk Factor Score Per Nursin RFS Level Per Nursing on Admit: 2=Moderate FRANCES LINDA MD Sep 01, 2017 12:29
[2017-09-01 15:29] VITALS: BP 129/81
--- NOTE | 2017-09-01 15:30 | Occupational Ther Daily Note ---
OT Current Status-Daily Note Subjective Pt. states that he is going to [facility] for rehab. No pain reported. Declines taking a shower even with encouragement. "I took one yesterday." Appearance Pt. up in chair. Has shorts on. Agrees to work with OT. Mental Status/Objective Patient Orientation: Person Functional [place] Measure 0=Not Assessed/NA 4=Minimal Assistance 1=Total Assistance 5=Supervision or Setup 2=Maximal Assistance 6=Modified [place] 3=Moderate Assistance 7=Complete [place] ADL-Treatment Lower Body Dressing (FIM): 5 (Pt. demonstrates ability to doff/don socks using dressing stick and sock aide.) Pt. is educated on all adaptive equipment. OT issues pt. toilet tongs and educates pt. in using them. OT also places elastic laces into shoes so that pt. does not have to tie/untie shoes. Pt. already had shorts on and states that he was able to get them on himself, and that he has been able to pull down and up his pants when toileting. However, has not had a BM yet, but suspects that he will have difficulty with self cleansing when he does. Pt. is educated again on back safety and back precautions. comes into room to speak with pt. and family, and session ended. All needs were met with family in the room. Education OT Patient Education: Correct positioning, Modified ADL techniques, Progress toward Goal/Update tx plan, Purpose of tx/functional activities, Reviewed precautions, Rehab process, Use of adapted equipment Teaching Recipient: Patient Teaching Methods: Demonstration Response to Teaching: Verbalize Understanding, Return Demonstration OT Short Term Goals Short Term Goals 1=Demonstrate adherence to instructed precautions during ADL tasks. 2=Patient will verbalize/demonstrate understanding of assistive devices/ modifications for ADL. 3=Patient will improve strength/tolerance for activity to enable patient to perform ADL's. OT Prison Goals Prison Goals Time Frame: Sep 07, 2017 Bathing(FIM): 5 Upper Body Dressing(FIM): 6 Lower Body Dressing(FIM): 6 Toileting(FIM): 6 Toilet/Commode Transfer(FIM): 6 Additional Goals: 1-Demonstrate ADL Tasks, 2-Verbalize Understanding, 3- ImproveStrength/Esequiel 1=Demonstrate adherence to instructed precautions during ADL tasks. 2=Patient will verbalize/demonstrate understanding of assistive devices/ modifications for ADL. 3=Patient will improve strength/tolerance for activity to enable patient to perform ADL's. OT Education/Plan Problem List/Assessment Assessment: Decreased Activ Tolerance, Impaired I ADL's, Impaired Self-Care Skills Pt s/p L4-5 TLIF with decreased mobility and ADL functioning. Pt to benefit from skilled OT intervention for ADL training, transfers, strengthening, adaptive equipment training, and home safety education to improve level of independence and allow safe discharge. Discharge Recommendations Plan/Recommendations: Continue POC Therapy D/C Recommendations: Home w/ Family Support, Occupational Therapy Home Care Equpiment Recommendations-D/C: Hip Kit Target Placement Pt. states that he would like to go to a skilled unit for continued therapy. Treatment Plan/Plan of Care Treatment,Training & Education: Yes Patient would benefit from OT for education, treatment and training to promote independence in ADL's, mobility, safety and/or upper extremity function for ADL' s. Plan of Care: ADL Retraining, Functional Mobility, UE Funct Exercise/Act Treatment Duration: Sep 07, 2017 Frequency: 5 times per week Estimated Hrs Per Day: .25 hour per day Agreement: Yes Rehab Potential: Good Time/GCodes Start Time: 11:05 Stop Time: 11:35 Total Time Billed (hr/min): 30 Billed Treatment Time 1, ADL x 2 LLOYD BLACK OT Sep 01, 2017 15:29
== END 2017-09-01 15:43 | disposition home health service (06) | DRG 460 ==
LOC: 4TH 06:13 → SURG 06:14 → EDSTATUS 07:30 → 4TH 11:00
PROVIDERS: ADMIT Orthopaedic Surgery Orthopaedic Surgery of the Spine; ATTEND Orthopaedic Surgery Orthopaedic Surgery of the Spine
PROC: 0SG00AJ Fusion of Lumbar Vertebral Joint with Interbody Fusion Device, Posterior Approach, Anterior Column, Open Approach (ICD-10-PCS; principal; 2017-08-29 07:37)
DX: M48.061 Spinal stenosis, lumbar region without neurogenic claudication (principal); M54.16 Radiculopathy, lumbar region; M96.1 Postlaminectomy syndrome, not elsewhere classified; E66.01 Morbid (severe) obesity due to excess calories; Z68.42 Body mass index [BMI] 45.0-49.9, adult; G47.33 Obstructive sleep apnea (adult) (pediatric); I10 Essential (primary) hypertension; E78.5 Hyperlipidemia, unspecified; Z23 Encounter for immunization
CPT/HCPCS: 36415; 72100; 80053; 85027; 86850; 86900; 86901; 94664